=== PATIENT | female | born 2005 | race Two or more races ===

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

== ENCOUNTER → 2023-08-06 | Outpatient (CLI) | payer OTHER ==
[~2023-08-06] MED LIST changes: +ANEC4CRE3 TOP; +PRED20TA PO
[2023-08-06 12:54] LABS: BASO # 0.1 10^3/uL (0.0-0.2); BASO % 0.9 % (0.0-1.0); EOS # 0.2 10^3/uL (0.0-0.5); EOS % 2.1 % (0.0-3.0); HEMATOCRIT 47.4 % (36.0-47.0); LYMPH # 2.2 10^3/uL (1.5-5.0); LYMPH % 22.5 % (24.0-44.0); MEAN CORPUSCULAR HEMOGLOBIN 29.9 pg (27.0-33.0); MEAN CORPUSCULAR HGB CONC 33.8 g/dl (32.0-36.5); MEAN CORPUSCULAR VOLUME 88.4 fl (80.0-96.0); MONO # 0.6 10^3/uL (0.0-0.8); MONO % 6.1 % (2.0-8.0); NEUTROPHILS # 6.6 10^3/uL (1.5-8.5); NEUTROPHILS % 67.9 % (36.0-66.0); PLATELET COUNT, AUTOMATED 484 10^3/uL (150-450); RED BLOOD COUNT 5.36 10^6/uL (4.00-5.40); WHITE BLOOD COUNT 9.7 10^3/uL (4.0-10.0)
[2023-08-06 13:23] LABS: HCG, SERUM QUANTITATIVE < 2.6 MIU/ML (<4.2)
[2023-08-06 13:26] LABS: ALBUMIN 3.9 G/DL (3.2-5.2); ALKALINE PHOSPHATASE 81 U/L (46-116); ALT/SGPT 61 U/L (7.0-40); AST/SGOT 21 U/L (<34); BILIRUBIN,TOTAL 0.3 MG/DL (0.3-1.2); BLOOD UREA NITROGEN 9 MG/DL (9-23); CALCIUM LEVEL 9.8 MG/DL (8.5-10.1); CARBON DIOXIDE LEVEL 28 MMOL/L (20-31); CHLORIDE LEVEL 104 MMOL/L (98-107); GLUCOSE, FASTING 122 MG/DL (60-100); SODIUM LEVEL 139 MMOL/L (136-145); TOTAL PROTEIN 7.4 G/DL (5.7-8.2)
== END ==
LOC: M LAB 11:49
PROVIDERS: ATTEND Registered Nurse
DX: R19.7 Diarrhea, unspecified (principal); R11.2 Nausea with vomiting, unspecified

== ENCOUNTER 2023-09-13 11:49 | Emergency (ER) | payer OTHER ==
[~2023-09-13] VITALS: Ht 167.6 cm; Wt 97.0 kg
[2023-09-13 11:50] VITALS: O2SAT 100
[2023-09-13] MEDS ORDERED: FLUO20CA22 (12:00)
[2023-09-13] MEDS ORDERED: MIDOTAB PO (12:11)
[2023-09-13 12:48] LABS: HEMATOCRIT 48.9 % (36.0-47.0); HEMOGLOBIN 16.5 g/dl (12.0-15.5); MEAN CORPUSCULAR HEMOGLOBIN 29.6 pg (27.0-33.0); MEAN CORPUSCULAR HGB CONC 33.7 g/dl (32.0-36.5); MEAN CORPUSCULAR VOLUME 87.6 fl (80.0-96.0); PLATELET COUNT, AUTOMATED 447 10^3/uL (150-450); RED BLOOD COUNT 5.58 10^6/uL (4.00-5.40)
[2023-09-13] MEDS: NAPROXEN 250 MG TAB PO ONE (13:09)
[2023-09-13] MEDS ORDERED: ONDANSETRON 4MG ORAL DISINTEGRATING TAB PO ONE (14:10)
[2023-09-13] MEDS ORDERED: NAPR-885 PO (14:13)
[2023-09-13] MEDS ORDERED: ONDA4TAB6 PO (14:13)
[2023-09-13 14:19] VITALS: BP 136/84; TEMP 97.4
== END 2023-09-13 14:21 | disposition home or self-care (01) ==
LOC: M ED 13:06
DX: N94.6 Dysmenorrhea, unspecified (principal); Z87.891 Personal history of nicotine dependence

== ENCOUNTER 2023-09-15 09:13 | Emergency (ER) | payer OTHER ==
[~2023-09-15] VITALS: Ht 167.6 cm; Wt 96.4 kg
[~2023-09-15 09:13] MED LIST changes: +FLUO20CA22; +MIDOTAB PO; +NAPR-885 PO
[2023-09-15 09:14] VITALS: BP 144/91; TEMP 96.8; O2SAT 99
[2023-09-15] MEDS: SUCRALFATE SUSP 1GM/10ML UD PO ONE (11:29)
[2023-09-15] MEDS: MAALOX 30 ML SUSP *UDC PO ONE (11:29)
[2023-09-15] MEDS: KETOROLAC 30 MG/ML 1ML VIAL IM ONE (11:31)
[2023-09-15] MEDS ORDERED: ONDA4TAB6 PO (12:21)
[2023-09-15] MEDS ORDERED: MAALSUS19 PO (12:21)
[2023-09-15] MEDS ORDERED: SUCR1SS PO (12:21)
[2023-09-15] MEDS ORDERED: TYLE650T38 PO (12:21)
== END 2023-09-15 12:29 | disposition home or self-care (01) ==
LOC: M ED 09:13
DX: R00.8 Other abnormalities of heart beat (principal); M54.50 Low back pain, unspecified; F41.9 Anxiety disorder, unspecified; Z87.891 Personal history of nicotine dependence; Z79.899 Other long term (current) drug therapy; Z88.0 Allergy status to penicillin; Z88.1 Allergy status to other antibiotic agents
CPT/HCPCS: 87486; 87581; 87633; 87798; 96372; 99283; J1885

== ENCOUNTER → 2024-04-10 | Outpatient (REF) ==
[~2024-04-10] MED LIST changes: +FLUO-365; -FLUO20CA22; +MAALSUS19 PO; +ONDA-282 PO; -ONDA4TAB6 PO; +SUCR1SS PO; +TYLE650T38 PO
== END ==
LOC: M EMP 12:03
PROVIDERS: ATTEND Family Medicine
DX: Z11.52 Encounter for screening for COVID-19 (principal)

== ENCOUNTER 2024-04-27 18:13 | Emergency (ER) | payer OTHER ==
[~2024-04-27] VITALS: Ht 167.6 cm; Wt 84.6 kg
[2024-04-27 18:18] VITALS: BP 138/86; TEMP 97.9; O2SAT 98
[2024-04-27 20:13] LABS: BASO # 0.1 10^3/uL (0.0-0.2); BASO % 0.9 % (0.0-1.0); EOS # 0.1 10^3/uL (0.0-0.5); EOS % 0.5 % (0.0-3.0); HEMATOCRIT 47.7 % (36.0-47.0); HEMOGLOBIN 16.1 g/dl (12.0-15.5); LYMPH # 2.2 10^3/uL (1.5-5.0); LYMPH % 18.7 % (24.0-44.0); MEAN CORPUSCULAR HEMOGLOBIN 29.5 pg (27.0-33.0); MEAN CORPUSCULAR HGB CONC 33.8 g/dl (32.0-36.5); MEAN CORPUSCULAR VOLUME 87.5 fl (80.0-96.0); MONO # 0.9 10^3/uL (0.0-0.8); MONO % 7.6 % (2.0-8.0); NEUTROPHILS # 8.4 10^3/uL (1.5-8.5); NEUTROPHILS % 71.8 % (36.0-66.0); PLATELET COUNT, AUTOMATED 445 10^3/uL (150-450); RED BLOOD COUNT 5.45 10^6/uL (4.00-5.40); WHITE BLOOD COUNT 11.8 10^3/uL (4.0-10.0)
[2024-04-27 20:36] LABS: LIPASE 29 U/L (12-53)
[2024-04-27 20:36] LABS: HCG, SERUM QUALITATIVE NEGATIVE (NEGATIVE)
[2024-04-27 20:39] LABS: ALBUMIN 4.3 G/DL (3.2-5.2); ALKALINE PHOSPHATASE 77 U/L (35-104); ALT/SGPT 16 U/L (7.0-40); AST/SGOT 9 U/L (<34); BILIRUBIN,DIRECT 0.2 MG/DL (<0.4); BILIRUBIN,TOTAL 0.5 MG/DL (0.3-1.2); BLOOD UREA NITROGEN 8 MG/DL (9-23); CALCIUM LEVEL 10.1 MG/DL (8.5-10.1); CARBON DIOXIDE LEVEL 21 MMOL/L (20-31); CHLORIDE LEVEL 110 MMOL/L (98-107); CREATININE FOR GFR 0.61 MG/DL (0.55-1.30); GLUCOSE, FASTING 88 MG/DL (60-100); POTASSIUM SERUM 3.9 MMOL/L (3.5-5.1); SODIUM LEVEL 141 MMOL/L (136-145); TOTAL PROTEIN 7.9 G/DL (5.7-8.2)
== END 2024-04-27 20:06 | disposition left against medical advice (07) ==
LOC: M ED 18:13
DX: Z53.21 Procedure and treatment not carried out due to patient leaving prior to being seen by health care provider (principal)